=== PATIENT | female | born 2000 | race Caucasian/White ===

== ENCOUNTER 2021-08-10 17:37 | Emergency (ER) | payer BC, OTHER ==
[~2021-08-10] VITALS: Ht 175.3 cm; Wt 88.6 kg
[2021-08-10 17:48] VITALS: TEMP 98.5
[2021-08-10 18:12] LABS: COLLECTION METHOD CLEAN CATCH
[2021-08-10 18:24] LABS: MUCOUS Present (NOT PRESENT); PH 7 (5-8); SQUAMOUS EPITHELIAL 0-2 /hpf (0-10); URINE APPEARANCE Clear (CLEAR/HAZY); URINE BACTERIA None Seen /hpf (NONE SEEN); URINE BILIRUBIN Negative (NEGATIVE); URINE BLOOD 1+ (NEGATIVE); URINE COLOR Yellow (YELLOW); URINE GLUCOSE Negative (NEGATIVE); URINE KETONE Negative (NEGATIVE); URINE LEUKOCYTE ESTERASE Negative (NEGATIVE); URINE NITRATE Negative (NEGATIVE); URINE PROTEIN(semi-quant) Negative (NEGATIVE); URINE RBC 0-2 /hpf (0-2); URINE UROBILINOGEN Negative (NEGATIVE)
[2021-08-10 18:33] LABS: TRICYCLIC ANTIDEPRESS URINE NEGATIVE
[2021-08-10] MEDS ORDERED: UBRELVY50 MG PO (19:11)
[2021-08-10] MEDS ORDERED: TRILEPTAL 150M150 MG PO (19:11)
[2021-08-10] MEDS ORDERED: TRILEPTAL600 MG PO (19:11)
[2021-08-10 19:13] LABS: BASO # 0.1 K/mm3 (0.0-0.2); BASO % 0.7 % (0.0-2.0); EOS # 0.3 K/mm3 (0.0-0.7); EOS % 3.3 % (0.0-4.0); GRAN # 4.8 K/mm3 (1.4-6.5); HEMATOCRIT 42.4 % (37.0-47.0); HEMOGLOBIN 14.4 g/dl (12.5-16.0); LYMPH # 1.6 K/mm3 (1.2-3.4); LYMPH % 21.7 % (20.0-51.0); MEAN CELL VOLUME 84 fl (80.0-100.0); MEAN CORPUSCULAR HEMOGLOBIN 28 pg (27-31); MEAN CORPUSCULAR HGB CONC 34 g/dl (33.0-37.0); MEAN PLATELET VOLUME 11.1 fl (7.4-10.4); MONO # 0.7 K/mm3 (0.1-0.6); MONO % 9.9 % (1.7-9.3); PLATELET COUNT 198 K/mm3 (130-400); RED BLOOD COUNT 5.07 M/mm3 (4.10-5.30); REDCELL DISTRIBUTION WIDTH-CV 12.2 % (11.5-14.5)
[2021-08-10 19:26] LABS: ALANINE AMINOTRANSFERASE 11 U/L (0-55); ALBUMIN 3.7 gm/dL (3.5-5.0); ALKALINE PHOSPHATASE 68 U/L (40-150); ANION GAP 8 mmol/L (7-16); AST,SGOT 11 U/L (5-34); BILIRUBIN,TOTAL 0.2 mg/dL (0.2-1.2); BLOOD UREA NITROGEN 14 mg/dL (7-19); CALCIUM 7.6 mg/dL (8.4-10.2); CARBON DIOXIDE 18 mmol/L (22-29); CHLORIDE 116 mmol/L (98-107); CREATININE, serum 0.63 mg/dL (0.57-1.11); GLUCOSE 70 mg/dL (70-99); POTASSIUM 3.5 mmol/L (3.5-4.5); SODIUM 142 mmol/L (136-145); TOTAL PROTEIN 5.9 gm/dL (6.2-8.1)
[2021-08-10 19:29] LABS: ALCOHOL(ethanol),MEDICAL < 10 mg/dL (0-10)
[2021-08-10] MEDS ORDERED: TRILEPTAL 300M300 MG PO (19:33)
[2021-08-10 19:46] VITALS: BP 129/76; PULSE 75
== END 2021-08-10 19:45 | disposition home or self-care (01) ==
LOC: COL.ER 17:37
PROVIDERS: Emergency Medicine
DX: G40.909 Epilepsy, unspecified, not intractable, without status epilepticus (principal); Z79.899 Other long term (current) drug therapy
CPT/HCPCS: J7030